=== PATIENT | male | born 1955 | race Caucasian/White ===

== ENCOUNTER → 2017-06-07 | Outpatient (CLI) | payer OTHER ==
--- NOTE | 2017-06-07 11:28 | PN ---
PROGRESS NOTE DATE OF SERVICE: 06/07/2017 52-year-old gentleman has been followed in Sleep Center for treatment of obstructive sleep apnea-hypopnea syndrome. The patient continued to use his CPAP equipment every night for the whole night without problems. No snoring with the machine. [place] Sleepiness Scale is only 1. Usage of the machine is 5.2 hours per night. No problem with the mask. MEDICATIONS: 1. Clopidogrel. 2. Lisinopril. 3. Atorvastatin. 4. Latanoprost. 5. Vitamins. 6. Eyedrops. PHYSICAL EXAM: Patient in no distress. BP 142/82, HR 46, RR 16, height 5 feet 9 inches, weight 239, BMI 35.2. Patient increased his weight on 5 pounds since previous visit, temperature 98.0, oxygen saturation at room air 96%. Oropharynx: Extremely low position of soft palate. ABDOMEN: Obese. Neck Supple, no JVD. Thyroid is not palpable. LUNGS Clear to percussion and to auscultation. Good air exchange. No wheezing or rhonchi. HEART S1, S2 regular. No murmurs, gallops, or rubs. ABDOMEN : Obese. Soft and nontender. Bowel sounds are present. No organomegaly appreciated. EXTREMITIES No clubbing or cyanosis. HOUSE PAINTER Awake, alert, and oriented X3. Cranial nerves 2 to 7 intact. There is no fasciculation or atrophy. noted. No focal deficits observed. IMPRESSION: 1. Obstructive sleep apnea-hypopnea syndrome on control with CPAP at 11 cm of water. Good compliance with treatment benefitting from treatment. 2. Obesity. 3. Hypertension. 4. Status post recent umbilical hernia repair. 5. Hyperlipidemia. 6. History of mini-stroke in 2012. 7. History of increased eye pressure. PLAN: 1. Continue treatment with CPAP every night. 2. Losing weight. 3. Sleep hygiene with regular time in bed for at least 7 and one half hours. 4. Prescription for all necessary CPAP supplies including mask, tube, filters. 5. No driving if feeling sleepiness. 6. Followup visit in 1 year or earlier if patient has any problems related to sleep. Thank you very much for allowing me to participate in the management of your patient. Sincerely, Eric Amaya MD, PhD, FAASM Diplomat of [place] [employer] Specialties [place] Board [employer] Medicine Watch Train Assembler of [facility] [place] MMODL / KAMILLE: [id number] /
== END ==
LOC: SLEEP 10:11
PROVIDERS: ATTEND Internal Medicine
DX: G47.33 Obstructive sleep apnea (adult) (pediatric) (principal); E66.9 Obesity, unspecified; I10 Essential (primary) hypertension; E78.5 Hyperlipidemia, unspecified; Z98.890 Other specified postprocedural states; Z79.899 Other long term (current) drug therapy

== ENCOUNTER → 2018-06-06 | Outpatient (CLI) | payer OTHER ==
--- NOTE | 2018-06-06 12:30 | SFUN ---
SLEEP CENTER FOLLOW UP NOTE DATE OF SERVICE: 06/06/2018 This 63-year-old gentleman had been followed in the sleep center for treatment of obstructive sleep apnea-hypopnea syndrome. The patient continued to use his CPAP equipment every night for the whole night. He has a sleeve for the tube to prevent extra condensation. No problem with the usage of the machine except the unit is a little old, more than 5 years. [place] Sleepiness Scale today is 1. MEDICATIONS: Lisinopril, clopidogrel, atorvastatin, latanoprost eye drops, vitamins. PHYSICAL EXAMINATION: During physical exam, patient in no distress. VITAL SIGNS: BP 148/89, HR 42, RR 16, height 5 feet 7 inches, weight 244.0, body mass index 38.2, temperature 97.8, oxygen saturation at room air 96%. HEENT: PERRLA, EOMI. Oropharynx extremely low position of soft palate. NECK: Supple, no JVD. Thyroid is not palpable. LUNGS: Clear to percussion and to auscultation. Good air exchange. No wheezing or rhonchi. HEART: S1, S2 regular. No murmurs, gallops, or rubs. ABDOMEN: Obese. EXTREMITIES: No clubbing or cyanosis. SUPERVISOR RESEARCH SHOP: Awake, alert, and oriented X3. Cranial nerves 2 to 7 intact. There is no fasciculation or atrophy. noted. No focal deficits observed. IMPRESSION: 1. Obstructive sleep apnea-hypopnea syndrome. Patient demonstrated great compliance with treatment benefitting from treatment. 2. Hypertension. 3. Obesity. 4. Hyperlipidemia. 5. History of mini-stroke in 2013. 6. History of increased eye pressure. PLAN: 1. Patient will continue to use CPAP equipment every night for the whole night with the same pressure of 11 cm of water. 2. Will replace patient's CPAP unit to the new one. 3. Losing weight. 4. Sleep hygiene with regular time in bed for at least 8 hours. 5. No driving if feeling any sleepiness. Thank you very much for allowing me to participate in management of your patient. Sincerely, Eric Amaya MD, PhD, FAASM Diplomat of [place] [employer] Specialties [place] [employer] Medicine Bulk Delivery Driver of [facility] [employer] MMODL / PRESTONN: [id number] /
== END | disposition home or self-care (01) ==
LOC: SLEEP 10:16
PROVIDERS: ATTEND Internal Medicine
DX: G47.33 Obstructive sleep apnea (adult) (pediatric) (principal); I10 Essential (primary) hypertension; E66.9 Obesity, unspecified; E78.5 Hyperlipidemia, unspecified; Z68.38 Body mass index [BMI] 38.0-38.9, adult; Z86.73 Personal history of transient ischemic attack (TIA), and cerebral infarction without residual deficits; Z86.69 Personal history of other diseases of the nervous system and sense organs; Z99.89 Dependence on other enabling machines and devices; Z79.02 Long term (current) use of antithrombotics/antiplatelets; Z79.899 Other long term (current) drug therapy

== ENCOUNTER → 2018-08-01 | Outpatient (CLI) | payer OTHER ==
--- NOTE | 2018-08-01 12:00 | PN ---
PROGRESS NOTE DATE OF SERVICE: 08/01/2018 A 63-year-old gentleman who has been followed in the Sleep Center for treatment of obstructive sleep apnea-hypopnea syndrome. Recently, we replaced patient CPAP unit to the new one and this is his first visit with the new CPAP machine. Patient is able to use machine every night for the whole night without any significant problems. Sometimes there is indication about leak from the full-face mask on the screen. I checked his CPAP unit level a pressure 8-12 most of the time pressure 11.9 cm of water. The usage is 100% of the nights more than 4 hours. Average usage is 7.2 hours. Leak is 28 L/minute which is borderline for full-face mask. Apnea-hypopnea index is only 1.1, which is absolutely perfect. [place] Sleepiness Scale today is only 1. MEDICATIONS: Lisinopril, clopidogrel, atorvastatin, latanoprost eye drops, vitamins. PHYSICAL EXAM: Patient in no distress. BP 149/80, HR 43, RR16, weight 242.2, temperature 98.1. OROPHARYNX: Extremely low position of soft palate. ABDOMEN: Slightly obese. Neck Supple, no JVD. Thyroid is not palpable. LUNGS Clear to percussion and to auscultation. Good air exchange. No wheezing or rhonchi. HEART S1, S2 regular. No murmurs, gallops, or rubs. EXTREMITIES No clubbing or cyanosis. LOG GRADER Awake, alert, and oriented X3. Cranial nerves 2 to 7 intact. There is no fasciculation or atrophy. noted. No focal deficits observed. IMPRESSION: 1. Obstructive sleep apnea-hypopnea syndrome. Patient demonstrated 100% compliance with treatment benefitting from treatment. 2. Hypertension. 3. Bradycardia. 4. Obesity. 5. Hyperlipidemia. 6. History of mini-stroke in 2012. 7. History of increased eye pressure. PLAN: 1. Patient will continue to use CPAP machine with the same regimen every night for the whole night. 2. Losing weight. 3. Sleep hygiene with regular time in bed for at least 8 hours. 4. No driving if feeling sleepiness. 5. Will maintain all necessary prescriptions for CPAP mask, tube, filters. Thank you very much for allowing me to participate in management of your patient. Sincerely, Eric Amaya MD, PhD, FAASM Diplomat of [place] [employer] Specialties [place] Board of Internal Medicine Car Wash Attendant Automatic of [facility] [place] MMJONAL / PRESTONN: [id number] /
== END ==
LOC: SLEEP 10:48
PROVIDERS: ATTEND Internal Medicine
DX: G47.33 Obstructive sleep apnea (adult) (pediatric) (principal); I10 Essential (primary) hypertension; E66.9 Obesity, unspecified; E78.5 Hyperlipidemia, unspecified; R00.1 Bradycardia, unspecified; Z86.69 Personal history of other diseases of the nervous system and sense organs; Z86.73 Personal history of transient ischemic attack (TIA), and cerebral infarction without residual deficits; Z99.89 Dependence on other enabling machines and devices; Z79.899 Other long term (current) drug therapy

== ENCOUNTER → 2018-09-09 | Outpatient (CLI) | payer OTHER ==
--- NOTE | 2018-09-09 11:45 | US ---
EXAMINATION TYPE: US thyroid st tissue head/neck DATE OF EXAM: 09/09/2018 COMPARISON: NONE CLINICAL HISTORY: 63-year-old male E03.9 Hypothyroidism. Hypothyroidism, patient on thyroid meds TECHNIQUE: Multiple sonographic images of the thyroid gland are obtained. GLAND SIZE: Right Lobe: 5.6 x 2.0 x 2.0 cm Overall Parenchyma: heterogenous Left Lobe: 5.2 x 1.8 x 1.8 cm Overall Parenchyma: heterogeneous Isthmus Thickness: 0.4 cm NODULES RIGHT: # of nodules measured on right: 0 LEFT: # of nodules measured on left: 0 ISTHMUS: # of nodules measured in the isthmus: 0 Bilateral neck scanned, no evidence of lymphadenopathy. Photovoltaic Installer notes: Mildly enlarged and heterogeneous gland without any definite nodules seen at this time. IMPRESSION: Borderline to mild thyromegaly with diffuse glandular heterogeneity. No discrete nodule. Findings may represent goiter or diffuse thyroiditis.
== END | disposition home or self-care (01) ==
LOC: RADUSWWP 07:44
PROVIDERS: ATTEND Family Medicine
DX: E01.0 Iodine-deficiency related diffuse (endemic) goiter (principal)
CPT/HCPCS: 76536

== ENCOUNTER → 2019-10-09 | Outpatient (CLI) | payer OTHER ==
--- NOTE | 2019-10-09 12:14 | SFUN ---
SLEEP CENTER FOLLOW UP NOTE DATE OF SERVICE: 10/09/2019 This 64-year-old gentleman has been followed in sleep center for treatment of obstructive sleep apnea-hypopnea syndrome. The patient successfully continues to use his CPAP equipment every night for the whole night. No snoring with the machine. He is getting all his supplies in time. [place] Sleepiness Scale today is 0. MEDICATIONS: Clopidogrel, lisinopril, atorvastatin, latanoprost one eye drop in the left eye, vitamins. PHYSICAL EXAMINATION: During physical exam, patient in no distress. VITAL SIGNS: BP 151/83, HR 42, RR 16, height 5 feet 8 inches, weight 237 pounds, which is 5 pounds less than during last visit about one year ago, body mass index 36.0, temperature 98.1, oxygen saturation at room air 97%. HEENT: PERRLA, EOMI. Oropharynx extremely low position of soft palate. Mallampati 4. NECK: Supple, no JVD. Thyroid is not palpable. LUNGS: Clear to percussion and to auscultation. Good air exchange. No wheezing or rhonchi. HEART: S1, S2 regular. No murmurs, gallops, or rubs. ABDOMEN: Obese. EXTREMITIES: No clubbing or cyanosis. CAPACITY ANALYST: Awake, alert, and oriented X3. Cranial nerves 2 to 7 intact. There is no fasciculation or atrophy. noted. No focal deficits observed. I checked patient's CPAP unit, range of the pressure 8 to 12, average pressure 11.8 cm of water. Leak is 35 L/minute which is borderline for the full-face mask. Apnea- hypopnea index only 1.1, which is absolutely perfect. Usage is 30/30 nights for more than 4 hours with average usage is 7.1 hours per night which is great compliance. IMPRESSION: 1. Obstructive sleep apnea-hypopnea syndrome. Patient demonstrated 100% compliance with treatment and benefitting from treatment. 2. Hypertension. 3. Bradycardia. 4. Hyperlipidemia. 5. Obesity. 6. History of increased eye pressure. 7. History of mini-stroke in 2013. PLAN: 1. Patient will continue to use CPAP equipment every night for the whole night. 2. Losing weight. 3. Sleep hygiene with regular time in bed for at least 7-1/2 to 8 hours. 4. I will maintain all necessary prescriptions for full-face mask, tube filters. 5. No driving if feeling any sleepiness. 6. Follow-up visit in 1 year or earlier if patient has any problems. Thank you very much for allowing me to participate in management of your patient. Sincerely, Eric Amaya MD, PhD, FAASM Diplomat of [place] Board of Medical Specialties [employer] Board of Internal Medicine Ball Point Splitter of [facility] [place] MMODL / PRESTONN: [id number] /
== END | disposition home or self-care (01) ==
LOC: SLEEP 11:16
PROVIDERS: ATTEND Internal Medicine
DX: G47.33 Obstructive sleep apnea (adult) (pediatric) (principal); I10 Essential (primary) hypertension; R00.1 Bradycardia, unspecified; E78.5 Hyperlipidemia, unspecified; E66.9 Obesity, unspecified; Z68.36 Body mass index [BMI] 36.0-36.9, adult; Z86.73 Personal history of transient ischemic attack (TIA), and cerebral infarction without residual deficits; Z87.720 Personal history of (corrected) congenital malformations of eye; Z79.899 Other long term (current) drug therapy

== ENCOUNTER → 2021-01-05 | Outpatient (CLI) | payer OTHER ==
--- NOTE | 2021-01-05 20:51 | SFUN ---
SLEEP CENTER FOLLOW UP NOTE DATE OF SERVICE: 01/05/2021 This 65-year-old gentleman has been followed in Sleep Center for treatment of obstructive sleep apnea-hypopnea syndrome. I saw this patient about one year ago. The patient continues to use CPAP equipment every night for the whole night. No snoring with the machine. [place] Sleepiness Scale today is only 1. He is getting his supplies on time. I checked his CPAP unit. Range of the pressure is 8 to 12, average pressure 11.8, usage 30/30 nights for more than 4 hours with average usage 6.9 hours per night. Leak is 34 L/minute. Apnea-hypopnea index is 1.7. MEDICATIONS: 1. Clopidogrel 75 mg once a day. 2. Lisinopril 20 mg once a day. 3. Atorvastatin 20 mg once a day. 4. Levothyroxine 75 mcg once a day. 5. Latanoprost 1 drop left eye once a day. 6. Tamsulosin 0.4 mg twice a day. 7. Multivitamins. 8. Vitamin D and C. PHYSICAL EXAMINATION: GENERAL: A pleasant patient in no distress. VITAL SIGNS: BP 118/70, HR 45, RR 15, height 5 feet 8 inches, weight 246.2, temperature 96.6, oxygen saturation at room air 99%. HEENT: PERRLA, EOMI. Evaluation of oropharynx showed tongue protrudes midline. Extremely low position of soft palate. Mallampati IV. NECK: Supple. No JVD. Thyroid is not palpable. LUNGS: Clear to percussion and to auscultation. Good air exchange. No wheezing or rhonchi. HEART: S1, S2 regular. No murmurs, gallops or rubs. ABDOMEN: Obese. EXTREMITIES: No clubbing or cyanosis. NECKTIE OPERATOR POCKETS AND PIECES: Awake, alert, and oriented X3. Cranial nerves 2 to 7 intact. There is no fasciculation or atrophy. noted. No focal deficits observed. IMPRESSION: 1. Obstructive sleep apnea-hypopnea syndrome. Patient demonstrated 100% compliance with treatment, benefitting from treatment. 2. Hypertension. 3. Bradycardia. 4. Hyperlipidemia. 5. Obesity. 6. History of increased eye pressure. 7. History of mini-stroke in 2012. PLAN: 1. Patient will continue to use PAP equipment every night for the whole night. 2. Sleep hygiene with regular time in bed for at least 7-1/2 to 8 hours. 3. Precautions related to driving. No driving if feeling sleepiness. 4. I will maintain all necessary prescription for PAP supplies including mask, tube, filters. 5. Watching weight. 6. Follow-up visit in 6 months or earlier if patient has any problems. Thank you very much for allowing me to participate in the management of your patient. Sincerely, Eric Amaya MD, PhD, FAASM Diplomat of [place] Board of Medical Specialties [place] Board of Internal Medicine Lead Java Software Engineer of [facility] [place] MMODL / IJN: [id number] /

== ENCOUNTER → 2021-04-13 | Outpatient (CLI) | payer OTHER ==
--- NOTE | 2021-04-13 12:45 | US ---
EXAMINATION TYPE: US venous doppler duplex LE LT DATE OF EXAM: 04/13/2021 12:14 PM COMPARISON: NONE CLINICAL HISTORY: R06.9 EDEMA,M79.662 PAIN IN LT LOWER LEG. edema in left leg, no injury, no h/o dvt, on thinners for low heart rate SIDE PERFORMED: Left TECHNIQUE: The lower extremity deep venous system is examined utilizing real time linear array sonog shante with graded compression, doppler sonography and color-flow sonography. VESSELS IMAGED: Common Femoral Vein Deep Femoral Vein Greater Saphenous Vein * Femoral Vein Popliteal Vein Small Saphenous Vein * Proximal Calf Veins (* superficial vessels) Left Leg: Negative for DVT office closed at end of exam, will attempt to reach later today IMPRESSION: No evidence for DVT
== END | disposition home or self-care (01) ==
LOC: RADUSWWP 11:38
PROVIDERS: ATTEND Family Medicine
DX: M79.662 Pain in left lower leg (principal); R60.0 Localized edema

== ENCOUNTER → 2021-11-16 | Outpatient (CLI) | payer OTHER ==
--- NOTE | 2021-11-16 13:14 | SFUN ---
SLEEP CENTER FOLLOW UP NOTE DATE OF SERVICE: 11/16/2021 This 66-year-old gentleman has been followed in Sleep Center for treatment of obstructive sleep apnea-hypopnea syndrome. The patient continues to use CPAP equipment every night, getting his supplies on time. [place] Sleepiness Scale today is in normal range at 2. I checked his CPAP unit. It is in automatic regimen with a pressure 8 to 12, average pressure 11.8. Usage is 30/30 nights for more than 4 hours, average 6.5 hours per night. Leak is 32 L/minute. Apnea-hypopnea index is 1.4, which is in normal range. MEDICATIONS: 1. Clopidogrel 75 mg once a day. 2. Lisinopril 20 mg once a day. 3. Atorvastatin 20 mg once a day. 4. Levothyroxine 75 mcg once a day. 5. Tamsulosin 0.4 mg once a day. 6. Latanoprost eye drops to the left eye. 7. Multivitamins. 8. Aleve as needed. PHYSICAL EXAMINATION: GENERAL: Pleasant patient in no distress. VITAL SIGNS: BP 156/88, HR around 50, RR 16, weight 243.6, temperature 96.2, oxygen saturation at room air 97%. HEENT: PERRLA, EOMI, evaluation of oropharynx showed tongue protrudes midline. Extremely low position of soft palate; Mallampati IV. NECK: Supple, no JVD. Thyroid is not palpable. LUNGS: Clear to percussion and to auscultation. Good air exchange. No wheezing or rhonchi. HEART: S1, S2 regular. No murmurs, gallops, or rubs. ABDOMEN: Obese. EXTREMITIES: No clubbing or cyanosis. FLY FRAME TENDER: Awake, alert, and oriented X3. Cranial nerves 2 to 7 intact. There is no fasciculation or atrophy. noted. No focal deficits observed. IMPRESSION: 1. Obstructive sleep apnea-hypopnea syndrome. Patient demonstrated great compliance with treatment, benefitting from treatment. 2. Hypertension. 3. Bradycardia. 4. Hyperlipidemia. 5. Increased eye pressure. 6. Obesity. 7. History of mini-stroke in 2012. PLAN: 1. Patient will continue to use PAP equipment every night for the whole night. 2. Sleep hygiene with regular time in bed for at least 7-1/2 to 8 hours. 3. Precautions related to driving. No driving if feeling sleepiness. 4. I will maintain all necessary prescription for PAP supplies including mask, tube, filters. 5. Watching weight. 6. Follow-up visit in 6 months or earlier if patient has any problems. Thank you very much for allowing me to participate in the management of your patient. Sincerely, Eric Amaya MD, PhD, FAASM Diplomat of [place] Board of Medical Specialties Sleep Medicine Board of [place] Board of Internal Medicine Licensed Mental Health Counselor of [facility] [place] MMODL / KAMILLE: [id number] /
== END ==
LOC: SLEEP 09:52
PROVIDERS: ATTEND Internal Medicine
DX: G47.33 Obstructive sleep apnea (adult) (pediatric) (principal); I10 Essential (primary) hypertension; R00.1 Bradycardia, unspecified; E78.5 Hyperlipidemia, unspecified; E66.9 Obesity, unspecified; Z86.73 Personal history of transient ischemic attack (TIA), and cerebral infarction without residual deficits; H40.059 Ocular hypertension, unspecified eye; Z99.89 Dependence on other enabling machines and devices

== ENCOUNTER → 2022-06-14 | Outpatient (CLI) | payer OTHER ==
--- NOTE | 2022-06-14 11:01 | P.PN ---
Subjective DATE: 06/14/2022 FOLLOW UP VISIT. Patient with obstructive sleep apnea hypopnea syndrome return to sleep center for follow-up visit. Information from previous visit have been reviewed. Patient is using PAP equipment every night for the whole night, getting PAP supplies in time. The patient does not have significant problems with the mask, PAP unit and humidification. [place] sleepiness scale is 1, which is perfect. I checked information from PAP unit. PAP unit pressure 8-12, average 11.7 cm H2O. Usage is 100 % for more then 4 hours, average 7 hours per night. Leak is 37 l/m, which is in acceptable range. Apnea Hypopnea Index is 1.3, which is normal. MEDICATIONS:1. Clopidogrel 75 mg once a day 2. Lisinopril 20 mg once a day 3. Atorvastatin 20 mg once a day 4. Levothyroxine 75 g once a day 5. Latanoprost eyedrops 6. Tomsho is in 0.4 mg twice a day 7. Zyrtec During physical exam: GENERAL: A pleasant patient without any distress. VITAL SIGNS: BP 154/85, HR 48, RR 16 , weight 239, temperature 98.2, oxygen saturation at room air 37.4 % . HEENT: PERRLA, EOMI.low position of soft palate, Mallapati 4 . NECK: Supple. No JVD. LUNGS: Clear to percussion and to auscultation. Good air exchange. No wheezing or rhonchi. HEART: S1, S2 regular. ABDOMEN: Soft and nontender. Slightly obese EXTREMITIES: No clubbing or cyanosis. [employer] SALES MANAGER: Awake, alert, and oriented x3. No focal deficit. Impressions: 1. Obstructive sleep apnea-hypopnea syndrome. Patient demonstrated great compliance with treatment, benefiting from treatment. 2. Bradycardia. 3. Hypertension. 4. Hyperlipidemia. 5. Increased eye pressure. 6. Obesity. 7. History of mini stroke in 2013. Plan: 1. Continue using PAP equipment every night for the whole night. 2. To change air filter at least 1-2 times per month. 3. PAP unit should stay lower then position of the head. 4. Advised patient to remove all remaining water from humidifier canister daily and make it dry after each usage. Refill canister with fresh distilled water before each usage. 5. Sleep hygiene with regular time in bed for at least 8 hours. 6. Precautions related to driving. No driving if feel any sleepiness. 7. I will maintain prescription for PAP supplies including mask, tube, filters. 8. Follow up visit in 6 months or earlier if patient has any problems. 9. Watching and losing weight. Thank you very much for allowing me to participate in the management of your patient. Eric Amaya MD, PhD, FAASM. Diplomat of [place] Board of Sleep Medicine, Sleep Medicine Board by [place] Board of Internal Medicine Dispatcher Maintenance Service of [facility] [place]
== END | disposition home or self-care (01) ==
LOC: SLEEP 09:59
PROVIDERS: ATTEND Internal Medicine
DX: Z53.9 Procedure and treatment not carried out, unspecified reason (principal)
CPT/HCPCS: 99212

== ENCOUNTER → 2022-07-10 | Outpatient (CLI) | payer OTHER ==
--- NOTE | 2022-07-10 11:59 | XR ---
EXAMINATION TYPE: XR knee complete RT DATE OF EXAM: 07/10/2022 COMPARISON: NONE HISTORY: Pain TECHNIQUE: Three views are submitted. FINDINGS: Joint spaces are preserved. Osseous structures are intact. No acute fracture seen. IMPRESSION: 1. No acute fracture or dislocation.
== END | disposition home or self-care (01) ==
LOC: RADXRYALE 11:05
PROVIDERS: ATTEND Physician Assistant Medical
DX: M25.561 Pain in right knee (principal)

== ENCOUNTER → 2022-12-13 | Outpatient (CLI) | payer OTHER ==
--- NOTE | 2022-12-13 11:23 | P.PN ---
Subjective DATE: 12/13/2022 FOLLOW UP VISIT. Patient with obstructive sleep apnea hypopnea syndrome return to sleep center for follow-up visit. Information from previous visit have been reviewed. Patient is using PAP equipment every night for the whole night, getting PAP supplies in time. The patient does not have significant problems with the mask, PAP unit and humidification. [place] sleepiness scale is 1, which is perfect. I checked information from PAP unit and explained to the patient. PAP unit pressure 6-12, average 11.8 cm H2O. Usage is 100 % for more then 4 hours, average 7.1 hours per night. Leak is 31 l/m, which is in acceptable range. Apnea Hypopnea Index is 1.2, which is normal. MEDICATIONS:1. Lisinopril 20 mg once a day 2. Clopidogrel 75 mg once a day 3. Atorvastatin 20 mg once a day 4. Levothyroxine 75 g once a day 5. Latanoprost eyedrops 6. Flomax 0.4 mg twice a day During physical exam: GENERAL: A pleasant patient without any distress. VITAL SIGNS: BP 167/84, HR 47, RR 16 , weight 241.8, temperature 97.7, oxygen saturation at room air 95 % . HEENT: PERRLA, EOMI.low position of soft palate, Mallapati 4 . NECK: Supple. No JVD. LUNGS: Clear to percussion and to auscultation. Good air exchange. No wheezing or rhonchi. HEART: S1, S2 regular. ABDOMEN: Soft and nontender. Slightly obese EXTREMITIES: No clubbing or cyanosis. ROUND CORNER CUTTER OPERATOR: Awake, alert, and oriented x3. No focal deficit. Impressions: 1. Obstructive sleep apnea-hypopnea syndrome. Patient demonstrated great compliance with treatment, benefiting from treatment. 2. Mild obesity body mass index 37.1. 3. Hypertension. 4. Hyperlipidemia. 5. Increased eye pressure. 6. History of mini stroke in 2013. 7. Bradycardia. Plan: 1. Continue using PAP equipment every night for the whole night. 2. To change air filter at least 1-2 times per month. 3. PAP unit should stay lower then position of the head. 4. Advised patient to remove all remaining water from humidifier canister daily and make it dry after each usage. Refill canister with fresh distilled water before each usage. 5. Sleep hygiene with regular time in bed for at least 8 hours. 6. Precautions related to driving. No driving if feel any sleepiness. 7. I will maintain prescription for PAP supplies including mask, tube, filters. 8. Watching and losing weight. 9. Follow up visit in 6 months or earlier if patient has any problems. Thank you very much for allowing me to participate in the management of your patient. Eric Amaya MD, PhD, FAASM. Diplomat of [place] Board of Sleep Medicine, Sleep Medicine Board by [place] Board of Internal Medicine Safety Physician of [facility] [place]
== END ==
LOC: SLEEP 10:30
PROVIDERS: ATTEND Internal Medicine
DX: G47.33 Obstructive sleep apnea (adult) (pediatric) (principal); Z79.899 Other long term (current) drug therapy; Z79.890 Hormone replacement therapy; E66.9 Obesity, unspecified; E78.5 Hyperlipidemia, unspecified; H57.89 Other specified disorders of eye and adnexa; I10 Essential (primary) hypertension; R00.1 Bradycardia, unspecified; R63.4 Abnormal weight loss; Z68.37 Body mass index [BMI] 37.0-37.9, adult; Z99.89 Dependence on other enabling machines and devices
CPT/HCPCS: 99212

== ENCOUNTER → 2023-07-04 | Outpatient (CLI) | payer OTHER ==
--- NOTE | 2023-07-04 12:18 | P.PN ---
Subjective DATE: 07/04/2023 FOLLOW UP VISIT. Patient with obstructive sleep apnea hypopnea syndrome return to sleep center for follow-up visit. Information from previous visit have been reviewed. Patient is using PAP equipment every night for the whole night, getting PAP supplies in time. The patient does not have significant problems with the mask, PAP unit and humidification. [place] sleepiness scale is 1, which is perfect. I checked information from PAP unit. PAP unit pressure 8-12, average 11.9 cm H2O. Usage is 100 % for more then 4 hours, average 6.6 hours per night. Leak is 28 l/m, which is in acceptable range. Apnea Hypopnea Index is 1.9, which is normal. MEDICATIONS:1. Clopidogrel 75 mg once a day 2. Lisinopril 20 mg once a day 3. Atorvastatin 20 mg once a day 4. Levothyroxine 75 mg once a day 5. Tamsulosin 0.4 mg twice a day 6. Latanoprost eyedrops During physical exam: GENERAL: A pleasant patient without any distress. VITAL SIGNS: BP 146/88, HR 44, RR 16, weight 242.2, temperature 97.9, oxygen saturation at room air 97 % . HEENT: PERRLA, EOMI.low position of soft palate, Mallapati 4 . NECK: Supple. No JVD. LUNGS: Clear to percussion and to auscultation. Good air exchange. No wheezing or rhonchi. HEART: S1, S2 regular. ABDOMEN: Soft and nontender.[] EXTREMITIES: No clubbing or cyanosis. SPECIALTY FOOD PRODUCTS SUPERVISOR: Awake, alert, and oriented x3. No focal deficit. Impressions: 1. Obstructive sleep apnea-hypopnea syndrome. Patient demonstrated great compliance with treatment, benefiting from treatment. 2. Hypertension. 3. Mild obesity, BMI the range of 37. 4. Hyperlipidemia. 5. Increased eye pressure. 6. Bradycardia. 7. History of mini stroke in 2013. Plan: 1. Continue using PAP equipment every night for the whole night. 2. To change air filter at least 1-2 times per month. 3. PAP unit should stay lower then position of the head. 4. Advised patient to remove all remaining water from humidifier canister daily and make it dry after each usage. Refill canister with fresh distilled water before each usage. 5. Sleep hygiene with regular time in bed for at least 8 hours. 6. Precautions related to driving. No driving if feel any sleepiness. 7. I will maintain prescription for PAP supplies including mask, tube, filters. 8. Follow up visit in 6 months or earlier if patient has any problems. 9. Watching and losing weight. Thank you very much for allowing me to participate in the management of your patient. Eric Amaya MD, PhD, FAASM. Diplomat of [employer], Sleep Medicine Board by [employer] Retail Team Leader of [facility] [place]
== END ==
LOC: 3 N SLEEP 10:38
PROVIDERS: ATTEND Internal Medicine
DX: G47.33 Obstructive sleep apnea (adult) (pediatric) (principal); I10 Essential (primary) hypertension; E66.9 Obesity, unspecified; E78.5 Hyperlipidemia, unspecified; H40.059 Ocular hypertension, unspecified eye; R00.1 Bradycardia, unspecified; Z68.37 Body mass index [BMI] 37.0-37.9, adult; Z99.89 Dependence on other enabling machines and devices; Z86.73 Personal history of transient ischemic attack (TIA), and cerebral infarction without residual deficits; Z79.02 Long term (current) use of antithrombotics/antiplatelets; Z79.899 Other long term (current) drug therapy
CPT/HCPCS: 99212

== ENCOUNTER → 2024-01-09 | Outpatient (CLI) | payer MEDICARE, BC ==
--- NOTE | 2024-01-10 00:11 | US ---
EXAMINATION TYPE: US Aorta Screening DATE OF EXAM: 01/09/2024 COMPARISON: NONE CLINICAL INDICATION: Male, 68 years old with history of Z13.6 ENCOUNTER FOR SCREENING FOR CARDIOVASCU LAR D; AAA screening TECHNIQUE: Multiple sonographic images of the abdominal aorta are obtained. FINDINGS: EXAM MEASUREMENTS: Abdominal Aorta: Proximal: Proximal Obscured by bowel gas Mid: 1.8 x 2.2 cm Distal: 1.8 x 1.3 cm Bifurcation: Right Iliac: 1.0 x 1.6 cm Left Iliac: 1.2 x 1.6 cm CALL WORKER NOTES: No evidence of AAA visualized. IMPRESSION: 1. No suspicious screening ultrasound changes for abdominal aortic aneurysm
== END | disposition home or self-care (01) ==
LOC: RADUSWWP 08:23
PROVIDERS: ATTEND Family Medicine
DX: Z13.6 Encounter for screening for cardiovascular disorders (principal)
CPT/HCPCS: 76706

== ENCOUNTER → 2024-02-06 | Outpatient (CLI) | payer MEDICARE, BC ==
[2024-02-06 10:35] VITALS: BP 144/72; PULSE 47; RESP 16; TEMP 98.3
--- NOTE | 2024-02-06 11:29 | P.PROGSL ---
Subjective DATE: 02/06/2024 FOLLOW UP VISIT. Patient with obstructive sleep apnea hypopnea syndrome return to sleep center for follow-up visit. Information from previous visit have been reviewed. Patient is using PAP equipment every night for the whole night, getting PAP supplies in time. The patient does not have significant problems with the mask, PAP unit and humidification. [place] sleepiness scale is 1, which is perfect. I checked information from PAP unit. PAP unit pressure 8-12, average 11.7 cm H2O. Usage is 100% for more then 4 hours, average 6.9 hours per night. Leak is increased to 47 l/m. Apnea Hypopnea Index is 2.3, which is normal. MEDICATIONS: Please see below, weight 247 pounds, BMI 38.6. During physical exam: GENERAL: A pleasant patient without any distress. VITAL SIGNS: Please see below. HEENT: PERRLA, EOMI.low position of soft palate, Mallapati 4 . NECK: Supple. No JVD. LUNGS: Clear to percussion and to auscultation. Good air exchange. No wheezing or rhonchi. HEART: S1, S2 regular. ABDOMEN: Soft and nontender.[] EXTREMITIES: No clubbing or cyanosis. RADIOLOGIC TECHNOLOGY PROGRAM DIRECTOR: Awake, alert, and oriented x3. No focal deficit. Impressions: 1. Obstructive sleep apnea-hypopnea syndrome. Patient demonstrated great compliance with treatment, benefiting from treatment. 2. Hypertension. 3. Mild obesity, BMI 38.6, patient increased weight on 5 pounds comparing with previous visit. 4. Increased eye pressure. 5. Hyperlipidemia. 6. Bradycardia. 7. History of mini stroke in 2013. Plan: 1. Continue using PAP equipment every night for the whole night. 2. polysomnogram for evaluation of patient breathing at the present time by Medicare requirements. 3. PAP unit should stay lower then position of the head. 4. Advised patient to remove all remaining water from humidifier canister daily and make it dry after each usage. Refill canister with fresh distilled water before each usage. 5. Sleep hygiene with regular time in bed for at least 8 hours. 6. Precautions related to driving. No driving if feel any sleepiness. 7. I will maintain prescription for PAP supplies including mask, tube, filters. 8. Follow up visit in 6 months or earlier if patient has any problems. 9. Watching and losing weight. Thank you very much for allowing me to participate in the management of your patient. Eric Amaya MD, PhD, FAASM. Diplomat of [employer], Sleep Medicine Board by [employer] Human Resources Recruiter of [facility] [place] Objective - Vital Signs Vital Signs: Vital Signs Temp 98.3 F 02/06/24 10:34 Pulse 47 L 02/06/24 10:34 Resp 16 02/06/24 10:34 BP 144/72 02/06/24 10:34 Pulse Ox 95 02/06/24 10:34 FiO2 Home Medications: Home Medications Medication Instructions Recorded Confirmed Type Atorvastatin [Lipitor] 20 mg PO DAILY 02/06/24 02/06/24 History Cetirizine HCl [Zyrtec] 02/06/24 History Cholecalciferol (Vitd3)/Vit K2 02/06/24 History [Vit D3-Vit K2 125-100 Mcg Sfgl] Clopidogrel [Plavix] 75 mg PO DAILY 02/06/24 02/06/24 History Latanoprost [Latanoprost 0.005%] 02/06/24 History Levothyroxine Sodium [Synthroid] 75 mcg PO DAILY 02/06/24 02/06/24 History Magnesium 02/06/24 02/06/24 History Multivitamins, Thera [Multivitamin 02/06/24 History (formulary)] Tamsulosin [Flomax] 02/06/24 History lisinopriL [Zestril] 20 mg PO DAILY 02/06/24 02/06/24 History
== END ==
LOC: 3 N SLEEP 10:06
PROVIDERS: ATTEND Internal Medicine
DX: G47.33 Obstructive sleep apnea (adult) (pediatric) (principal); I10 Essential (primary) hypertension; E66.9 Obesity, unspecified; H40.059 Ocular hypertension, unspecified eye; E78.5 Hyperlipidemia, unspecified; R00.1 Bradycardia, unspecified; Z99.89 Dependence on other enabling machines and devices; Z86.73 Personal history of transient ischemic attack (TIA), and cerebral infarction without residual deficits; Z68.38 Body mass index [BMI] 38.0-38.9, adult; Z79.899 Other long term (current) drug therapy
CPT/HCPCS: 99212

== ENCOUNTER 2024-03-09 19:31 | Outpatient (CLI) | payer MEDICARE, BC ==
--- NOTE | 2024-03-12 11:15 | P.PCN ---
Description of Procedure: POLYSOMNOGRAPHY REPORT PROCEDURE(S)/DATE(S): Polysomnography 03/09/2024 CLINICAL: Patient has been seen in the sleep center for evaluation of obstructive sleep apnea-hypopnea syndrome. Please see my consultation. Sleep study has been done for evaluation of patient breathing during the sleep. PROCEDURE: The standard montage for clinical polysomnography included the electroencephalogram, the electrooculogram, the mentalis surface electromyography and Lead II cardiography. The respiratory battery consisted of measurements of nasal/buccal air flow, pressure transducer measurements from nose, thoracic and/or abdominal effort and intercostal surface electromyography. Video monitoring has been done to check for any parasomnia events. Nocturnal oxyhemoglobin saturations were obtained by finger oximetry. Step-hope titration with positive airway pressure was utilized to control the respiratory events, if necessary. RESULTS: During the diagnostic sleep study sleep efficiency was normal 88.8%. Latency to sleep onset was prolonged to 38.0 min. Sleep architecture showed sta ge NI was short 3.0%, Delta sleep was absent 0%, REM sleep was extremely short 8.5%. Respiratory channel showed 116 obstructive apneas, 1 mixed apneas, 6 central apneas, 200 hypopneas with lowest oxygen level 76%. Total apnea hypopnea index was 54.9. Heart rate was in the range between 38 and 46, average 42. EMG showed 4.6 periodic limb movements per hour with 0 micro-arousals per hour. IMPRESSIONS: 1. Severe obstructive sleep apnea hypopnea syndrome. 2. No significant periodic limb movements have been documented. 3. Bradycardia. Please see other impressions from consultation PLAN: 1. The patient will have PAP titration for correction of respiratory abnormalities during the sleep. 2. Losing weight program. 3. Sleep hygiene with regular time in bed for at least 7-1/2 hours. 4. No driving if feeling sleepiness. Thank you very much for allowing me to participate in the management of your patient. Sincerely, Eric Amaya MD, PhD, FAASM. Diplomat of [employer] [employer], Sleep Medicine Board by [employer] Associate Entertainment Editor of [facility] [place] Alfred Louis DO
== END 2024-03-10 05:25 | disposition home or self-care (01) ==
LOC: 3 N SLEEP 19:31
PROVIDERS: ATTEND Internal Medicine
DX: G47.33 Obstructive sleep apnea (adult) (pediatric) (principal); R00.1 Bradycardia, unspecified
CPT/HCPCS: 95810

== ENCOUNTER 2024-04-13 19:34 | Outpatient (CLI) | payer MEDICARE, BC ==
--- NOTE | 2024-04-16 16:00 | P.PCN ---
Description of Procedure: CLINICAL: Titration with positive air pressure has been done for correction of respiratory abnormalities during sleep. DESCRIPTION OF PROCEDURE: The standard montage for clinical polysomnography included the electroencephalogram, the electrocardiogram, the mentalis surface electromyography and Lead II cardiography. The respiratory battery consisted of measurements of nasal /buccal air flow, pressure transducer measurements from the nose, thoracic and /or abdominal effort and intercostal surface electromyography. Video monitoring has been done to check for any parasomnia events. Nocturnal oxyhemoglobin saturations were obtained by finger oximetry. Step-hope titration with positive airway pressure was utilized to control respiratory events. Raw data of sleep recording has been reviewed and is adequate. RESULTS: Sleep efficiency was normal 91.0%. Latency to sleep onset was normal at 23.5 minutes.]. Sleep architecture showed stage N1 was short on the 0.9%, Delta sleep was absent 0%, REM sleep was increased to 36.4%. Heart rate was minimum 28 BPM, maximum 74 BPM, average 38 BPM by computer calculation. EMG showed 21.1 periodic limb movements per hour. PAP titration have been done with CPAP up to the pressure 11 cm H2O. The best results were at the pressure 11 cm H2O. Apnea hypopnea index reduced to 0. IMPRESSION: 1. Obstructive sleep apnea hypopnea syndrome on controle with PAP treatment. 2. Periodic limb movements have been documented. Please see other impressions from consultation. PLAN: 1. The patient will have treatment with positive air pressure equipment with the level of pressure AutoPap 5-11 cm H2O and should use it every night for the whole night. 2. Watching and losing weight. 3. Sleep hygiene with regular time in bed for at least 8 hours. 4. No driving if feeling any sleepiness. 5. I will see the patient for follow up visit to explain the results of the test, recommendations, check compliance with treatment and make any necessary adjustment related to mask fitting, pressure and humidification. 6. Please check iron profile including ferritin level. Low level of iron may increase risk for periodic limb movements Thank you very much for allowing me to participate in the management of your patient. Sincerely, Eric Amaya MD, PhD, FAASM Diplomat of [employer] Sleep Medicine Board of [employer] [employer] Engineering Operations Leader of [facility] [place]
== END 2024-04-14 06:00 | disposition home or self-care (01) ==
LOC: 3 N SLEEP 19:34
PROVIDERS: ATTEND Internal Medicine
CPT/HCPCS: 95811

== ENCOUNTER → 2024-06-26 | Outpatient (CLI) | payer MEDICARE, BC ==
[2024-06-26 10:30] VITALS: BP 169/82; PULSE 40; RESP 18; TEMP 98.1
--- NOTE | 2024-06-26 10:57 | P.PROGSL ---
Subjective DATE: 06/26/2024 FOLLOW UP VISIT. Patient with obstructive sleep apnea hypopnea syndrome return to sleep center for follow-up visit. Recently patient had sleep study which documented obstructive sleep apnea hypopnea syndrome. Patient was initiated on PAP therapy and today is first visit after treatment was started. Patient was able to use PAP equipment every night for the whole night. The patient does not have significant problems with the mask, PAP pressure and humidification. [place] sleepiness scale is 1, which is perfect. I checked information from PAP unit. PAP unit pressure 5-11, average 10.8 cm H2O. Usage is 100% for more then 4 hours, average 7.6 hours per night. Leak is 20 l/m, which is in acceptable range. Apnea Hypopnea Index is 1.5, which is normal. MEDICATIONS:1. Atorvastatin 20 mg once a day 2. Cetirizine 3. Clopidogrel 4. Levothyroxine 75 mcg once a day 5. Latanoprost eyedrops 6. Tamsulosin 7. Lisinopril During physical exam: GENERAL: A pleasant patient without any distress. VITAL SIGNS: Please see below. HEENT: PERRLA, EOMI.low position of soft palate, Mallapati 4 . NECK: Supple. No JVD. LUNGS: Clear to percussion and to auscultation. Good air exchange. No wheezing or rhonchi. HEART: S1, S2 regular. ABDOMEN: Soft and nontender.[] EXTREMITIES: No clubbing or cyanosis. VEHICLE CONTROLS ENGINEER: Awake, alert, and oriented x3. No focal deficit. Impressions: 1. Severe obstructive sleep apnea-hypopnea syndrome. Patient demonstrated great compliance with treatment, benefiting from treatment. 2. Hypertension. 3. Obesity. 4. Hyperlipidemia. 5. Increased eye pressure. 6. History of mini stroke in 2013. 7. Bradycardia. Plan: 1. Continue using PAP equipment every night for the whole night. 2. To change air filter at least 1-2 times per month. 3. PAP unit should stay lower then position of the head. 4. Advised patient to remove all remaining water from humidifier canister daily and make it dry after each usage. Refill canister with fresh distilled water before each usage. 5. Sleep hygiene with regular time in bed for at least 8 hours. 6. Precautions related to driving. No driving if feel any sleepiness. 7. I will maintain prescription for PAP supplies including mask, tube, filters. 8. Follow up visit in 8 months or earlier if patient has any problems. 9. Watching and losing weight. Thank you very much for allowing me to participate in the management of your patient. Eric Amaya MD, PhD, FAASM. Diplomat of [employer], Sleep Medicine Board by [employer] Stitcher Hand of [facility] [place] Objective - Vital Signs Vital Signs: Vital Signs Temp 98.1 F 06/26/24 10:29 Pulse 40 L 06/26/24 10:29 Resp 18 06/26/24 10:29 BP 169/82 06/26/24 10:29 Pulse Ox 97 06/26/24 10:29 FiO2 Intake & Output 06/25/24 06/26/24 06/26/24 18:59 06:59 18:59 Weight 112.207 kg Home Medications: Home Medications Medication Instructions Recorded Confirmed Type Atorvastatin [Lipitor] 20 mg PO DAILY 02/06/24 02/06/24 History Cetirizine HCl [Zyrtec] 02/06/24 History Cholecalciferol (Vitd3)/Vit K2 02/06/24 History [Vit D3-Vit K2 125-100 Mcg Sfgl] Clopidogrel [Plavix] 75 mg PO DAILY 02/06/24 02/06/24 History Latanoprost [Latanoprost 0.005%] 02/06/24 History Levothyroxine Sodium [Synthroid] 75 mcg PO DAILY 02/06/24 02/06/24 History Magnesium 02/06/24 02/06/24 History Multivitamins, Thera [Multivitamin 02/06/24 History (formulary)] Tamsulosin [Flomax] 02/06/24 History lisinopriL [Zestril] 20 mg PO DAILY 02/06/24 02/06/24 History
== END ==
LOC: 3 N SLEEP 10:01
PROVIDERS: ATTEND Internal Medicine
DX: G47.33 Obstructive sleep apnea (adult) (pediatric) (principal); I10 Essential (primary) hypertension; E66.9 Obesity, unspecified; E78.5 Hyperlipidemia, unspecified; R00.1 Bradycardia, unspecified; H40.059 Ocular hypertension, unspecified eye; Z86.73 Personal history of transient ischemic attack (TIA), and cerebral infarction without residual deficits; Z99.89 Dependence on other enabling machines and devices; Z79.899 Other long term (current) drug therapy; Z79.02 Long term (current) use of antithrombotics/antiplatelets
CPT/HCPCS: 99212

== ENCOUNTER 2024-08-07 20:15 | Emergency (ER) | payer MEDICARE, BC ==
[2024-08-07 20:28] VITALS: TEMP 98.4
[2024-08-07 23:32] LABS: Basophils % (A) 0 %; Eosinophils # (A) 0.1 k/uL (0-0.7); Eosinophils % (A) 2 %; HCT 42.5 % (39.0-53.0); Lymphocytes # (A) 1.6 k/uL (1.0-4.8); Lymphocytes % (A) 29 %; MCH 31.4 pg (25.0-35.0); MCHC 33.1 g/dL (31.0-37.0); Mean Platelet Volume 9.8; Monocytes # (A) 0.4 k/uL (0-1.0); Monocytes % (A) 7 %; Neutrophils # (A) 3.4 k/uL (1.3-7.7); Neutrophils % (A) 61 %; Platelet Count 153 k/uL (150-450); RBC 4.47 m/uL (4.30-5.90); RDW 12.7 % (11.5-15.5); WBC 5.5 k/uL (3.8-10.6)
[2024-08-07 23:43] LABS: ALT 32 U/L (4-49); AST 45 U/L (17-59); African American GFR (CKD) >90 (>60 ml/min/1.73 sqM); Albumin 4.2 g/dL (3.5-5.0); Alkaline Phosphatase 68 U/L (38-126); Anion Gap 3 mmol/L; Blood Urea Nitrogen 19 mg/dL (9-20); Calcium 10.2 mg/dL (8.4-10.2); Carbon Dioxide 24 mmol/L (22-30); Chloride 110 mmol/L (98-107); Glucose 87 mg/dL (74-99); Non-African American GFR(CKD) 90 (>60 ml/min/1.73 sqM); Potassium 3.8 mmol/L (3.5-5.1); Sodium 137 mmol/L (137-145); Total Bilirubin 0.7 mg/dL (0.2-1.3); Total Protein 6.9 g/dL (6.3-8.2)
--- NOTE | 2024-08-08 01:02 | ED ---
General Adult HPI <Susana Weinstein P - Last Filed: 08/08/24 02:41> - General Source: patient Mode of arrival: ambulatory Limitations: no limitations <Nataliya Aguilar - Last Filed: 08/09/24 10:55> - General Chief complaint: Dizziness Stated complaint: dizziness Time Seen by Provider: 08/07/24 22:05 - History of Present Illness Initial comments: 69-year-old male with past medical history of CVA who presents emergency department for room spinning sensation. States that he had 2 spells today. 1 happened when he was at the chiropractor and he had to pick his head up off the bed. He did have HVLA performed. The dizziness lasts for approximately a minute and then goes away. Patient is on Plavix because of his history of stroke. He has no residual weakness but at the time the patient presented with right-sided weakness. He denies any visual changes. No other alleviating, precipitating or modifying factors (Nataliya Aguilar) - Related Data Home Medications Medication Instructions Recorded Confirmed Atorvastatin [Lipitor] 20 mg PO DAILY 02/06/24 02/06/24 Cetirizine HCl [Zyrtec] 02/06/24 Cholecalciferol (Vitd3)/Vit K2 02/06/24 [Vit D3-Vit K2 125-100 Mcg Sfgl] Clopidogrel [Plavix] 75 mg PO DAILY 02/06/24 02/06/24 Latanoprost [Latanoprost 0.005%] 02/06/24 Levothyroxine Sodium [Synthroid] 75 mcg PO DAILY 02/06/24 02/06/24 Magnesium 02/06/24 02/06/24 Multivitamins, Thera [Multivitamin 02/06/24 (formulary)] Tamsulosin [Flomax] 02/06/24 lisinopriL [Zestril] 20 mg PO DAILY 02/06/24 02/06/24 Allergies Allergy/AdvReac Type Severity Reaction Status Date / Time codeine AdvReac Abdominal Verified 08/07/24 20:29 Pain levofloxacin [From Levaquin] AdvReac Abdominal Verified 08/07/24 20:29 Pain Review of Systems ROS Other: All systems not noted in ROS Statement are negative. <Susana Weinstein - Last Filed: 08/08/24 02:41> ROS Other: All systems not noted in ROS Statement are negative. <Nataliya Aguilar - Last Filed: 08/09/24 10:55> ROS Statement: Those systems with pertinent positive or pertinent negative responses have been documented in the HPI. Past Medical History Past Medical History: CVA/TIA, Hypertension Additional Past Medical History / Comment(s): CVA 2013 History of Any Multi-Drug Resistant Organisms: None Reported Past Surgical History: Hernia Repair Past Anesthesia/Blood Transfusion Reactions: No Reported Reaction Past Psychological History: No Psychological Hx Reported Smoking Status: Former smoker Past Alcohol Use History: Occasional Past Drug Use History: None Reported <Nataliya Aguilar - Last Filed: 08/09/24 10:55> General Exam Limitations: no limitations General appearance: alert, in no apparent distress Head exam: Present: atraumatic, normocephalic, normal inspection Eye exam: Present: normal appearance, PERRL, EOMI. Absent: scleral icterus, conjunctival injection, periorbital swelling ENT exam: Present: normal exam, mucous membranes moist Neck exam: Present: normal inspection. Absent: tenderness, meningismus, lymphadenopathy Respiratory exam: Present: normal lung sounds bilaterally. Absent: respiratory distress, wheezes, rales, rhonchi, stridor Cardiovascular Exam: Present: bradycardia, normal heart sounds. Absent: systolic murmur, diastolic murmur, rubs, gallop, clicks GI/Abdominal exam: Present: soft, normal bowel sounds. Absent: distended, tenderness, guarding, rebound, rigid Extremities exam: Present: normal inspection, full ROM, normal capillary refill. Absent: tenderness, pedal edema, joint swelling, calf tenderness Back exam: Present: normal inspection Neurological exam: Present: alert, oriented X3, CN II-XII intact Psychiatric exam: Present: normal affect, normal mood Skin exam: Present: warm, dry, intact, normal color. Absent: rash <Nataliya Aguilar - Last Filed: 08/09/24 10:55> Course Vital Signs 08/07/24 08/07/24 08/08/24 20:20 22:25 00:15 Temperature 98.4 F Pulse Rate 50 L 45 L 52 L Respiratory 18 18 18 Rate Blood Pressure 182/89 193/101 176/102 O2 Sat by Pulse 97 97 96 Oximetry 08/08/24 08/08/24 08/08/24 02:20 02:57 05:05 Temperature Pulse Rate 49 L 37 L 37 L Respiratory 16 16 18 Rate Blood Pressure 185/96 179/102 179/91 O2 Sat by Pulse 96 98 Oximetry Medical Decision Making - Lab Data Result diagrams: 08/07/24 23:09 08/07/24 23:09 <JsSusana Guera - Last Filed: 08/08/24 02:41> - Lab Data Result diagrams: 08/07/24 23:09 08/07/24 23:09 <Nataliya Aguilar A - Last Filed: 08/09/24 10:55> - Medical Decision Making Was pt. sent in by a medical professional or institution (, PA, HOSE MENDER, urgent care, hospital, or [facility]...) When possible be specific @ -No Did you speak to anyone other than the patient for history (EMS, parent, family, police, friend...)? What history was obtained from this source @ - Did you review nursing and triage notes (agree or disagree)? Why? @ -I reviewed and agree with nursing and triage notes Were old charts reviewed (outside hosp., previous admission, EMS record, old EKG, old radiological studies, urgent care reports/EKG's, [facility] records)? Report findings @ -No old charts were reviewed Differential Diagnosis (chest pain, altered mental status, abdominal pain women, abdominal pain men, vaginal bleeding, weakness, fever, dyspnea, syncope, headache, dizziness, GI bleed, back pain, seizure, CVA, palpatations, mental health)? @ -Differential Dizziness: Benign paroxysmal positional Vertigo, Meniere's disease, otitis media, acoustic neuroma, vertebrobasilar insufficiency, cerebellar stroke, encephalitis, hypovolemic, arrhythmia, coronary artery syndrome, anemia, this is not meant to be an all-inclusive list EKG interpreted by me (3pts min.). @ -Per Dr. Ayoub X-rays interpreted by me (1pt min.). @ -None done CT interpreted by me (1pt min.). @ -CTA with no mass or bleed U/S interpreted by me (1pt. min.). @ -None done What testing was considered but not performed or refused? (CT, X-rays, U/S, labs)? Why? @ -None What meds were considered but not given or refused? Why? @ -None Did you discuss the management of the patient with other professionals (professionals i.e. , PA, HOSE MENDER, lab, RT, psych nurse, social work msw, documentation improvement specialist, teacher, chief administrative officer, family caseworker)? Give summary @ -No Was smoking cessation discussed for >3mins.? @ -No Was critical care preformed (if so, how long)? @ -No Were there social determinants of health that impacted care today? How? (Homelessness, low income, unemployed, alcoholism, drug addiction, transportation, low edu. Level, literacy, decrease access to med. care, intermediate, rehab)? @ -No Was there de-escalation of care discussed even if they declined (Discuss DNR or withdrawal of care, Hospice)? DNR status @ -No What co-morbidities impacted this encounter? (DM, HTN, Smoking, COPD, CAD, Cancer, CVA, ARF, Chemo, Hep., AIDS, mental health diagnosis, sleep apnea, morbid obesity)? @ -None Was patient admitted / discharged? Hospital course, mention meds given and route, prescriptions, significant lab abnormalities, going to OR and other pertinent info. @ -Discharged Patient care was signed out to me by Dr. Ayoub. Patient who presented with intermittent dizziness that did begin while at the chiropractor office where he did receive HVLA. Patient had presented hypertensive with bradycardia which she has a documented history of. Labs and CT were unremarkable at the time of signout CTA was pending. CT head no acute findings. Results were discussed with patient who remained hypertensive and was given a dose of clonidine. Patient and were relieved with findings, patient's been asymptomatic here in the ER and was comfortable plan for discharge home and outpatient follow-up. Undiagnosed new problem with uncertain prognosis? @ -No Drug Therapy requiring intensive monitoring for toxicity (Heparin, Nitro, Insulin, Cardizem)? @ -No Were any procedures done? @ -No Diagnosis/symptom? @ -Dizziness Acute, or Chronic, or Acute on Chronic? @ -Default Uncomplicated (without systemic symptoms) or Complicated (systemic symptoms)? @ -Default Side effects of treatment? @ -No Exacerbation, Progression, or Severe Exacerbation? @ -No Poses a threat to life or bodily function? How? (Chest pain, [place], DC, pneumonia, PE, COPD, DKA, ARF, appy, cholecystitis, CVA, Diverticulitis, Homicidal, Suicidal, threat to staff... and all critical care pts) @ -No (Susana Weinstein) Was pt. sent in by a medical professional or institution (DAWIT Freire, HOSE MENDER, urgent care, hospital, or [facility]...) When possible be specific @ -No Did you speak to anyone other than the patient for history (EMS, parent, family, police, friend...)? What history was obtained from this source @ - Did you review nursing and triage notes (agree or disagree)? Why? @ -I reviewed and agree with nursing and triage notes Were old charts reviewed (outside hosp., previous admission, EMS record, old EKG, old radiological studies, urgent care reports/EKG's, [facility] records)? Report findings @ -No old charts were reviewed Differential Diagnosis (chest pain, altered mental status, abdominal pain women, abdominal pain men, vaginal bleeding, weakness, fever, dyspnea, syncope, headache, dizziness, GI bleed, back pain, seizure, CVA, palpatations, mental health, musculoskeletal)? @ -Differential Dizziness: Benign paroxysmal positional Vertigo, Meniere's disease, otitis media, acoustic neuroma, vertebrobasilar insufficiency, cerebellar stroke, encephalitis, hypovolemic, arrhythmia, coronary artery syndrome, anemia, this is not meant to be an all-inclusive list EKG interpreted by me (3pts min.). @ -Sinus bradycardia with a rate of 41. NV interval 167. QRS 170. QTc of 414. No acute ST segment elevations or depressions X-rays interpreted by me (1pt min.). @Yes no acute process CT interpreted by me (1pt min.). @ -Pending at this time U/S interpreted by me (1pt. min.). @ -None done What testing was considered but not performed or refused? (CT, X-rays, U/S, labs)? Why? @ -None What meds were considered but not given or refused? Why? @ -None Did you discuss the management of the patient with other professionals (professionals i.e. DAWIT Freire, HOSE MENDER, lab, RT, psych nurse, social work msw, documentation improvement specialist, teacher, chief administrative officer, family caseworker)? Give summary @ -Spoke with Dr. Weinstein who will take over care of the patient Was smoking cessation discussed for >3mins.? @ -No Was critical care preformed (if so, how long)? @ -No Were there social determinants of health that impacted care today? How? (Homelessness, low income, unemployed, alcoholism, drug addiction, transportation, low edu. Level, literacy, decrease access to med. care, intermediate, rehab)? @ -No Was there de-escalation of care discussed even if they declined (Discuss DNR or withdrawal of care, Hospice)? DNR status @ -No What co-morbidities impacted this encounter? (DM, HTN, Smoking, COPD, CAD, Cancer, CVA, ARF, Chemo, Hep., AIDS, mental health diagnosis, sleep apnea, morbid obesity)? @ -History of CVA Was patient admitted / discharged? Hospital course, mention meds given and route, prescriptions, significant lab abnormalities, going to OR and other pertinent info. @ -Upon arrival patient seen and evaluated in bed 4. Thorough history and physical exam was performed. Patient is placed on continuous pulse ox and cardiac monitoring. Twelve-lead EKG is obtained. Patient is bradycardic however he reports to a history of bradycardia with possible need for pacemaker in the future. IV was established. Laboratory studies are conducted. Patient is asymptomatic at this time. CT and CTAs performed. Studies are pending at this time and the case will be signed out to Dr. Weinstein ([employer]) - Lab Data Lab Results 08/07/24 08/07/24 08/07/24 Range/Units 23:09 23:09 23:09 WBC 5.5 (3.8-10.6) k/uL RBC 4.47 (4.30-5.90) m/uL Hgb 14.0 (13.0-17.5) gm/dL Hct 42.5 (39.0-53.0) % MCV 95.0 (80.0-100.0) fL MCH 31.4 (25.0-35.0) pg MCHC 33.1 (31.0-37.0) g/dL RDW 12.7 (11.5-15.5) % Plt Count 153 (150-450) k/uL MPV 9.8 Neutrophils % 61 % Lymphocytes % 29 % Monocytes % 7 % Eosinophils % 2 % Basophils % 0 % Neutrophils # 3.4 (1.3-7.7) k/uL Lymphocytes # 1.6 (1.0-4.8) k/uL Monocytes # 0.4 (0-1.0) k/uL Eosinophils # 0.1 (0-0.7) k/uL Basophils # 0.0 (0-0.2) k/uL PT 11.0 (10.0-12.5) sec INR 1.0 (<1.2) Sodium 137 (137-145) mmol/L Potassium 3.8 (3.5-5.1) mmol/L Chloride 110 H (98-107) mmol/L Carbon Dioxide 24 (22-30) mmol/L Anion Gap 3 mmol/L BUN 19 (9-20) mg/dL Creatinine 0.85 (0.66-1.25) mg/dL Est GFR (CKD-EPI)AfAm >90 (>60 ml/min/1.73 sqM) Est GFR (CKD-EPI)NonAf 90 (>60 ml/min/1.73 sqM) Glucose 87 (74-99) mg/dL Calcium 10.2 (8.4-10.2) mg/dL Total Bilirubin 0.7 (0.2-1.3) mg/dL AST 45 (17-59) U/L ALT 32 (4-49) U/L Alkaline Phosphatase 68 (38-126) U/L Total Protein 6.9 (6.3-8.2) g/dL Albumin 4.2 (3.5-5.0) g/dL Disposition Is patient prescribed a controlled substance at d/c from ED?: No <Susana Weinstein P - Last Filed: 08/08/24 02:41> <Nataliya Aguilar A - Last Filed: 08/09/24 10:55> Clinical Impression: Dizziness Disposition: HOME SELF-CARE Condition: Stable Instructions (If sedation given, give patient instructions): Dizziness (ED) Referrals: Alfred Louis DO [Primary Care Provider] - 1-2 days
--- NOTE | 2024-08-08 01:08 | CT ---
EXAM: CT Head Without Intravenous Contrast CLINICAL HISTORY: ITS.REASON CT Reason: dizziness with head changes, chiropractor TECHNIQUE: Axial computed tomography images of the head/brain without intravenous contrast. CTDI is 48.8 mGy and DLP is 336.8 mGy-cm. This CT exam was performed using one or more of the following dose reduction techniques: automated exposure control, adjustment of the mA and/or kV according to patient size, and/or use of iterative reconstruction technique. COMPARISON: No relevant prior studies available. FINDINGS: Brain: No hemorrhage or mass effect. Ventricles: No hydrocephalus. Bones/joints: Unremarkable. Soft tissues: Unremarkable. Sinuses: No air fluid level. Mastoid air cells: Clear. IMPRESSION: No acute hemorrhage, hydrocephalus, or mass effect.
--- NOTE | 2024-08-08 01:35 | CT ---
EXAM: CT Angiography Head With Intravenous Contrast CLINICAL HISTORY: ITS.REASON CT Reason: dizziness with head changes, chiropractor TECHNIQUE: Axial computed tomographic angiography images of the head with intravenous contrast. CTDI is 48.8 mGy and DLP is 1173 mGy-cm. This CT exam was performed using one or more of the following dose reduction techniques: automated exposure control, adjustment of the mA and/or kV according to patient size, and/or use of iterative reconstruction technique. MIP reconstructed images were created and reviewed. COMPARISON: No relevant prior studies available. FINDINGS: Right internal carotid artery: No significant stenosis. No aneurysm. Right anterior cerebral artery: No significant stenosis. No aneurysm. Right middle cerebral artery: No significant stenosis. No aneurysm. Right posterior cerebral artery: No significant stenosis. No aneurysm. Right vertebral artery: Unremarkable. Left internal carotid artery: No significant stenosis. No aneurysm. Left anterior cerebral artery: No significant stenosis. No aneurysm. Left middle cerebral artery: No significant stenosis. No aneurysm. Left posterior cerebral artery: No significant stenosis. No aneurysm. Left vertebral artery: Unremarkable. Basilar artery: No significant stenosis. No aneurysm. IMPRESSION: No significant stenosis. EXAM: CT Angiography Neck With Intravenous Contrast CLINICAL HISTORY: ITS.REASON CT Reason: dizziness with head changes, chiropractor TECHNIQUE: Routine carotid CT angiography protocol was performed with intravenous contrast. NASCET criteria using the distal ICAs for comparison were used for evaluation of stenoses. CTDI is 48.8 mGy and DLP is 1173 mGy-cm. This CT exam was performed using one or more of the following dose reduction techniques: automated exposure control, adjustment of the mA and/or kV according to patient size, and/or use of iterative reconstruction technique. MIP reconstructed images were created and reviewed. COMPARISON: None. FINDINGS: VASCULATURE: Right common carotid artery: No significant stenosis. No dissection. Right internal carotid artery: No significant stenosis. No dissection. Right vertebral artery: No significant stenosis. No dissection. Left common carotid artery: No significant stenosis. No dissection. Left internal carotid artery: No significant stenosis. No dissection. Left vertebral artery: No significant stenosis. No dissection. NECK: Lung apices: Clear. CAROTID STENOSIS REFERENCE USING NASCET CRITERIA: % ICA stenosis = (1 - narrowest ICA diameter/diameter of distal cervical ICA) x 100. Mild - <50% stenosis. Moderate - 50-69% stenosis. Severe - 70-94% stenosis. Near occlusion - 95-99% stenosis. Occluded - 100% stenosis. IMPRESSION: No significant stenosis.
[2024-08-08] MEDS: cloNIDine HCL 0.1 MG TAB PO STA (02:21)
[2024-08-08 02:58] VITALS: PULSE 37
[2024-08-08 05:16] VITALS: BP 179/91; RESP 18
== END 2024-08-08 05:05 | disposition home or self-care (01) ==
LOC: EC 20:15
DX: R42 Dizziness and giddiness (principal); Z88.1 Allergy status to other antibiotic agents; Z88.5 Allergy status to narcotic agent; Z87.891 Personal history of nicotine dependence; Z86.73 Personal history of transient ischemic attack (TIA), and cerebral infarction without residual deficits
CPT/HCPCS: 99284 ×2; 36415; 93005; 80053; 85025; 85610; 70496; 70450; 70498; Q9967

== ENCOUNTER → 2024-12-12 | Outpatient (CLI) | payer MEDICARE, BC ==
--- NOTE | 2024-12-12 11:24 | XR ---
EXAMINATION TYPE: XR foot limited RT DATE OF EXAM: 12/12/2024 10:56 AM COMPARISON: None. CLINICAL INDICATION: Male, 69 years old with history of [id number] RT FOOT PAIN, pain TECHNIQUE: 2 view(s) obtained. FINDINGS: Tiny plantar calcaneal heel spur is present No acute fracture or dislocation evident. Hallux valgus deformity is present Follow up exams can be performed 7-10 days from acute trauma for continued pain IMPRESSION: 1. No acute osseous abnormality radiographically apparent [facility], Workstation: [facility], 12/12/2024 11:22 AM
== END | disposition home or self-care (01) ==
LOC: RADXRYALE 10:42
PROVIDERS: ATTEND Physician Assistant Medical
DX: M20.11 Hallux valgus (acquired), right foot (principal); M77.31 Calcaneal spur, right foot

== ENCOUNTER → 2025-03-20 | Outpatient (CLI) | payer MEDICARE, BC ==
[2025-03-20 09:46] VITALS: BP 168/81; PULSE 48; RESP 12; TEMP 98.2
--- NOTE | 2025-03-20 11:18 | P.PROGSL ---
Subjective DATE: 03/20/2025 FOLLOW UP VISIT. Patient with obstructive sleep apnea hypopnea syndrome return to sleep center for follow-up visit. Information from previous visit have been reviewed. Patient is using PAP equipment every night for the whole night, getting PAP supplies in time. The patient does not have significant problems with the mask, PAP unit and humidification. [place] sleepiness scale is 0. I checked information from PAP unit. PAP unit pressure 5-11, average 10.6 cm H2O. Usage is 100% for more then 4 hours, average 7 hours per night. Leak is 20 l/m, which is in acceptable range. Apnea Hypopnea Index is 0.8, which is normal. MEDICATIONS: Clopidogrel 75 mg once a day, lisinopril 20 mg once a day, atorvastatin 20 mg once a day, levothyroxine 85 mcg once a day, tamsulosin 0.4 mg once a day, latanoprost drops, meclizine 12.5 mg as needed. During physical exam: GENERAL: A pleasant patient without any distress. VITAL SIGNS: BP 168/81, HR 48, RR 12, weight 247.4, BMI 37.5, temperature 98.2, oxygen saturation room air 97%. HEENT: PERRLA, EOMI.low position of soft palate, Mallapati 4 . NECK: Supple. No JVD. LUNGS: Clear to percussion and to auscultation. Good air exchange. No wheezing or rhonchi. HEART: S1, S2 regular. ABDOMEN: Soft and nontender.[] EXTREMITIES: No clubbing or cyanosis. SCREW MACHINE HAND: Awake, alert, and oriented x3. No focal deficit. Impressions: 1. Severe obstructive sleep apnea-hypopnea syndrome. Patient demonstrated great compliance with treatment, benefiting from treatment. 2. Hypertension. 3. Obesity. 4. Hyperlipidemia. 5. Bradycardia. 6. History of mini stroke in 2013. 7. Increased eye pressure. Plan: 1. Continue using PAP equipment every night for the whole night. 2. Sleep hygiene with regular time in bed for at least 7.5-8 hours 3. PAP unit should stay lower then position of the head. 4. Advised patient to remove all remaining water from humidifier canister daily and make it dry after each usage. Refill canister with fresh distilled water before each usage. 5. Watching and losing weight. 6. Precautions related to driving. No driving if feel any sleepiness. 7. I will maintain prescription for PAP supplies including mask, tube, filters. 8. Follow up visit in 12 months or earlier if patient has any problems. Thank you very much for allowing me to participate in the management of your patient. Eric Amaya MD, PhD, FAASM. Diplomat of [place] [employer], Sleep Medicine Board by [place] [employer] [place] [facility] [place] Objective - Vital Signs Vital Signs: Vital Signs Temp 98.2 F 03/20/25 09:46 Pulse 48 L 03/20/25 09:46 Resp 12 03/20/25 09:46 BP 168/81 03/20/25 09:46 Pulse Ox 97 03/20/25 09:46 FiO2 Intake & Output 03/19/25 03/20/25 03/20/25 18:59 06:59 18:59 Weight 112.037 kg Home Medications: Home Medications Medication Instructions Recorded Confirmed Type Atorvastatin [Lipitor] 20 mg PO DAILY 02/06/24 02/06/24 History Cetirizine HCl [Zyrtec] 02/06/24 History Cholecalciferol (Vitd3)/Vit K2 02/06/24 History [Vit D3-Vit K2 125-100 Mcg Sfgl] Clopidogrel [Plavix] 75 mg PO DAILY 02/06/24 02/06/24 History Latanoprost [Latanoprost 0.005%] 02/06/24 History Levothyroxine Sodium [Synthroid] 75 mcg PO DAILY 02/06/24 02/06/24 History Magnesium 02/06/24 02/06/24 History Multivitamins, Thera [Multivitamin 02/06/24 History (formulary)] Tamsulosin [Flomax] 02/06/24 History lisinopriL [Zestril] 20 mg PO DAILY 02/06/24 02/06/24 History Meclizine [Antivert] 25 mg PO BID PRN #10 tab 01/15/25 Rx
== END ==
LOC: 3 N SLEEP 09:36
PROVIDERS: ATTEND Internal Medicine
DX: G47.33 Obstructive sleep apnea (adult) (pediatric) (principal); I10 Essential (primary) hypertension; E66.9 Obesity, unspecified; H40.053 Ocular hypertension, bilateral; E78.5 Hyperlipidemia, unspecified; R00.1 Bradycardia, unspecified; Z86.73 Personal history of transient ischemic attack (TIA), and cerebral infarction without residual deficits; Z88.1 Allergy status to other antibiotic agents; Z88.5 Allergy status to narcotic agent
CPT/HCPCS: 99212